=== PATIENT | female | born 1970 | race Caucasian/White ===

== ENCOUNTER 2022-11-05 16:02 | Outpatient (REF) | payer BC, SELFPAY ==
[2022-11-05 17:04] LABS: Abs Immature Grans 0.01 10^3/uL (0.0-0.06); Absolute Basophil Count 0.05 10^3/uL (0.0-0.2); Absolute Lymphocyte Count 2.02 10^3/uL (1.2-3.4); Absolute Monocyte Count 0.41 10^3/uL (0.1-0.8); Absolute Neutrophil Count 2.89 10^3/uL (1.2-6.7); Basophils % 0.9; Eosinophils % 1.8; HCT 41.5 % (36.0-46.0); HGB 13.4 g/dL (11.2-15.7); Immature Grans % 0.2; Lymphocytes % 36.9; MCH 31.2 pg (27.0-33.0); MCHC 32.3 % (32.0-36.0); MCV 97 fL (80-95); MPV 10.6 fL (8.0-11.0); Monocytes % 7.5; Neutrophils % 52.7; Platelet Count 228 10^3/uL (130-400); RBC 4.29 10^6/uL (3.93-5.22); RDW 13.2 % (11.7-14.6); RDW-SD 47.4 fL; WBC 5.48 10^3/uL (4.4-10.8)
[2022-11-05 18:00] LABS: ALT 40 U/L (14-59); AST 22 U/L (15-37); Albumin 4.1 g/dL (3.4-5.0); Alkaline Phosphatase 117 U/L (46-116); Anion Gap 8.1 mmol/L (3-11); BUN 10 mg/dL (7-18); Bilirubin, Total 0.4 mg/dL (0.2-1.0); CO2 29.9 mmol/L (21.0-32.0); CREATININE 0.8 mg/dL (0.55-1.02); Chloride 106 mmol/L (98-107); Estimated GFR 88.05 (mL/min/1.73m2); Glucose 87 mg/dL (74-106); Iron 118 ug/dL (50-170); Potassium 4.7 mmol/L (3.5-5.1); Sodium 144 mmol/L (136-145); Total Iron Binding Capacity 323 ug/dL (250-450); Total Protein 7.5 g/dL (6.4-8.2); Transferrin Sat 37 % (15-50)
[2022-11-07 12:54] LABS: IgA 172 mg/dL (85-499); Interpretation (See Note); Tissue Transglutaminase IgA <1.2 U/mL (<4.0)
[2022-11-07 19:00] LABS: Vitamin D 25 Total 23.3 ng/mL (30-100)
== END 2022-11-05 16:03 | disposition home or self-care (01) ==
LOC: NCHCN 16:02
PROVIDERS: Visit Provider Family Medicine
DX: D50.9 Iron deficiency anemia, unspecified (principal); R19.7 Diarrhea, unspecified
CPT/HCPCS: 80053; 82306; 82784; 83516; 83540; 83550; 85025

== ENCOUNTER 2023-03-07 11:05 | Outpatient (REF) | payer BC, SELFPAY ==
[2023-03-07 15:14] LABS: Abs Immature Grans 0.02 10^3/uL (0.0-0.06); Absolute Basophil Count 0.07 10^3/uL (0.0-0.2); Absolute Eosinophil Count 0.25 10^3/uL (0.0-0.7); Absolute Lymphocyte Count 2.68 10^3/uL (1.2-3.4); Absolute Monocyte Count 0.66 10^3/uL (0.1-0.8); Absolute Neutrophil Count 3.51 10^3/uL (1.2-6.7); Eosinophils % 3.5; HCT 40.5 % (36.0-46.0); Immature Grans % 0.3; Lymphocytes % 37.3; MCH 30.8 pg (27.0-33.0); MCHC 32.1 % (32.0-36.0); MCV 96 fL (80-95); MPV 10.1 fL (8.0-11.0); Monocytes % 9.2; Neutrophils % 48.7; Platelet Count 238 10^3/uL (130-400); RBC 4.22 10^6/uL (3.93-5.22); RDW 13.5 % (11.7-14.6); WBC 7.19 10^3/uL (4.4-10.8)
[2023-03-07 15:31] LABS: Iron 77 ug/dL (50-170); Total Iron Binding Capacity 308 ug/dL (250-450); Transferrin Sat 25 % (15-50)
[2023-03-07 15:53] LABS: Vitamin D 25 Total 31.1 ng/mL (30-100)
[2023-03-07 16:08] LABS: ALT 30 U/L (14-59); AST 24 U/L (15-37); Albumin 4.1 g/dL (3.4-5.0); Alkaline Phosphatase 106 U/L (46-116); Anion Gap 5.4 mmol/L (3-11); BUN 15 mg/dL (7-18); Bilirubin, Total 0.4 mg/dL (0.2-1.0); CO2 31.6 mmol/L (21.0-32.0); CREATININE 0.7 mg/dL (0.55-1.02); Calcium 10.7 mg/dL (8.5-10.1); Chloride 103 mmol/L (98-107); Estimated GFR 103.35 (mL/min/1.73m2); Ferritin 57 ng/mL (8-252); Folate 13.9 ng/mL (8.6-20.0); Glucose 93 mg/dL (74-106); Potassium 4.4 mmol/L (3.5-5.1); Sodium 140 mmol/L (136-145); TSH 0.89 uIU/mL (0.36-3.74); Total Protein 7.4 g/dL (6.4-8.2); Vitamin B12 995 pg/mL (193-986)
== END 2023-03-07 11:06 | disposition home or self-care (01) ==
LOC: NCHCN 11:05
PROVIDERS: PCP Family Medicine; Visit Provider Family Medicine
DX: D50.9 Iron deficiency anemia, unspecified (principal); E83.52 Hypercalcemia; R19.7 Diarrhea, unspecified; R63.4 Abnormal weight loss; E61.1 Iron deficiency; D75.89 Other specified diseases of blood and blood-forming organs; R68.89 Other general symptoms and signs
CPT/HCPCS: 80053; 82306; 82607; 82728; 82746; 83540; 83550; 84443; 85025

== ENCOUNTER 2024-12-21 16:22 | Outpatient (REF) | payer BC, SELFPAY ==
[2024-12-21 21:07] LABS: Abs Immature Grans 0.01 10^3/uL (0.0-0.06); Absolute Basophil Count 0.08 10^3/uL (0.0-0.2); Absolute Lymphocyte Count 2.15 10^3/uL (1.2-3.4); Absolute Monocyte Count 0.61 10^3/uL (0.1-0.8); Absolute Neutrophil Count 3.93 10^3/uL (1.2-6.7); Basophils % 1.1 %; Eosinophils % 2.9 %; HCT 40.9 % (36.0-46.0); HGB 13.5 g/dL (11.2-15.7); Immature Grans % 0.1 %; Lymphocytes % 30.8 %; MCH 30.9 pg (27.0-33.0); MCV 94 fL (80-95); Monocytes % 8.7 %; Neutrophils % 56.4 %; Platelet Count 230 10^3/uL (130-400); RBC 4.37 10^6/uL (3.93-5.22); RDW 13.5 % (11.7-14.6); RDW-SD 46.4 fL; WBC 6.98 10^3/uL (4.4-10.8)
[2024-12-21 21:54] LABS: ALT 60 U/L (14-59); AST 38 U/L (15-37); Albumin 4.3 g/dL (3.4-5.0); Alkaline Phosphatase 108 U/L (46-116); Anion Gap 3.4 mmol/L (3-11); BUN 14 mg/dL (7-18); Bilirubin, Total 0.5 mg/dL (0.2-1.0); CO2 32.6 mmol/L (21.0-32.0); CREATININE 0.7 mg/dL (0.55-1.02); Chloride 102 mmol/L (98-107); Estimated GFR 102.07 (mL/min/1.73m2); Glucose 90 mg/dL (74-106); Potassium 4.2 mmol/L (3.5-5.1); Sodium 138 mmol/L (136-145); TSH 1.32 uIU/mL (0.36-3.74); Total Protein 7.8 g/dL (6.4-8.2); Vitamin D 25 Total 28 ng/mL (30-100)
[2024-12-22 11:17] LABS: FREE T4 1.08 ng/dL (0.76-1.46)
== END 2024-12-21 16:23 | disposition home or self-care (01) ==
LOC: NCHCN 16:22
PROVIDERS: PCP Family Medicine; Visit Provider Family Medicine
DX: R63.6 Underweight (principal); Z68.1 Body mass index [BMI] 19.9 or less, adult; E55.9 Vitamin D deficiency, unspecified
CPT/HCPCS: 80053; 82306; 84439; 84443; 85025

== ENCOUNTER 2025-01-18 17:30 | Outpatient (REF) | payer BC, SELFPAY ==
[2025-01-18 21:47] LABS: Abs Immature Grans 0.02 10^3/uL (0.0-0.06); Absolute Basophil Count 0.05 10^3/uL (0.0-0.2); Absolute Eosinophil Count 0.22 10^3/uL (0.0-0.7); Absolute Lymphocyte Count 2.19 10^3/uL (1.2-3.4); Absolute Monocyte Count 0.55 10^3/uL (0.1-0.8); Basophils % 0.6 %; Eosinophils % 2.8 %; HCT 43.2 % (36.0-46.0); HGB 13.7 g/dL (11.2-15.7); Immature Grans % 0.3 %; MCH 30.6 pg (27.0-33.0); MCHC 31.7 % (32.0-36.0); MCV 96 fL (80-95); MPV 10.1 fL (8.0-11.0); Neutrophils % 61.3 %; Platelet Count 223 10^3/uL (130-400); RBC 4.48 10^6/uL (3.93-5.22); RDW 13.4 % (11.7-14.6); RDW-SD 47.9 fL; WBC 7.83 10^3/uL (4.4-10.8)
[2025-01-18 21:57] LABS: ALT 29 U/L (14-59); AST 16 U/L (15-37); Albumin 4.2 g/dL (3.4-5.0); Alkaline Phosphatase 113 U/L (46-116); Anion Gap 5.4 mmol/L (3-11); BUN 19 mg/dL (7-18); Bilirubin, Total 0.3 mg/dL (0.2-1.0); CO2 30.6 mmol/L (21.0-32.0); CREATININE 0.7 mg/dL (0.55-1.02); Chloride 104 mmol/L (98-107); Estimated GFR 102.07 (mL/min/1.73m2); Glucose 84 mg/dL (74-106); Potassium 4.3 mmol/L (3.5-5.1); Sodium 140 mmol/L (136-145); Total Protein 7.9 g/dL (6.4-8.2)
[2025-01-18 21:58] LABS: C-Reactive Protein < 0.50 mg/dL (<or=0.5)
[2025-01-18 22:18] LABS: RBC 0-2 HPF (0-2)
[2025-01-18 22:19] LABS: Bacteria Rare HPF (Negative); C & S Indicated? No; Crystals Many Amorphous HPF (Negative); Epithelial Cells Few HPF (Negative); Mucus Negative (Negative)
[2025-01-19 19:55] LABS: HIV-1/2 Ag & Ab Screen Negative (Negative)
[2025-01-19 19:59] LABS: Hepatitis C Ab w Rflx HCV PCR Negative (Negative)
== END 2025-01-18 17:31 | disposition home or self-care (01) ==
LOC: NCHCN 17:30
PROVIDERS: PCP Family Medicine; Visit Provider Family Medicine
DX: R63.4 Abnormal weight loss (principal); R74.8 Abnormal levels of other serum enzymes
CPT/HCPCS: 80053; 86803; 87389; 81015; 85025; 86140

== ENCOUNTER 2025-01-28 12:28 | Outpatient (REF) | payer BC, SELFPAY ==
--- NOTE | 2025-01-28 09:54 | PAPFT_PTH ---
PATIENT: Rosario Snyder LOC: [facility]#:[id number] AGE/SX: 54/F ROOM: RE01/28/[address]: Morales Grayson : 1970 BED: DIS: 01/28/2025 SPEC #: [id number] RECD: 01/28/25 17:10 STATUS: ANSON REQ #: [id number] EMEKA: 01/28/25 09:[address]: Morales Grayson [facility] Cytology RECD BY: Jackie Madsen Tissues: 1 - CX/ENDOCX FOR PAP SMEARS Procedures: PAP THIN PREP/[facility] Screening HPV DNA PROBE Comments: [id number] (HPV 16 & 18/45)
== END 2025-01-28 12:29 | disposition home or self-care (01) ==
LOC: NCHCN 12:28
PROVIDERS: PCP Family Medicine; Visit Provider Family Medicine
DX: Z11.51 Encounter for screening for human papillomavirus (HPV) (principal); Z01.419 Encounter for gynecological examination (general) (routine) without abnormal findings
CPT/HCPCS: 88142; 87624